=== PATIENT | female | born 1990 ===

== ENCOUNTER → 2021-03-27 | Day surgery (SDC) | payer OTHER ==
[~2021-03-27] MED LIST: KETO10TA2 PO
== END | disposition home or self-care (01) ==
LOC: ADM 03-26 11:30 → CIR.AMB 11:30
PROVIDERS: ATTEND Obstetrics & Gynecology
DX: N72 Inflammatory disease of cervix uteri (principal); Z20.822 Contact with and (suspected) exposure to COVID-19

== ENCOUNTER 2025-01-18 12:29 | Outpatient (CLI) | payer OTHER | END 2025-01-18 12:31 | disposition home or self-care (01) | LOC: PRENATAL 12:29 | PROVIDERS: ATTEND Obstetrics & Gynecology Maternal & Fetal Medicine | DX: O44.00 Complete placenta previa NOS or without hemorrhage, unspecified trimester (principal); O36.1999 Maternal care for other isoimmunization, unspecified trimester, other fetus; Z3A.24 24 weeks gestation of pregnancy ==

== ENCOUNTER 2025-03-22 09:10 | Outpatient (CLI) | payer OTHER | END 2025-03-22 09:11 | disposition home or self-care (01) | LOC: PRENATAL 09:10 | PROVIDERS: ATTEND Obstetrics & Gynecology Maternal & Fetal Medicine | DX: O26.849 Uterine size-date discrepancy, unspecified trimester (principal); O36.8199 Decreased fetal movements, unspecified trimester, other fetus; O36.1999 Maternal care for other isoimmunization, unspecified trimester, other fetus; Z3A.34 34 weeks gestation of pregnancy ==

== ENCOUNTER 2025-03-31 17:39 | Outpatient (CLI) | payer OTHER ==
[2025-03-31 16:37] VITALS: BP 109/77
[2025-03-31] MEDS ORDERED: FAMOTIDINE/PF 20 MG/2 ML VIAL IV PUSH SCH (17:45)
[2025-03-31] MEDS ORDERED: RINGERS SOLUTION,LACTATED 1,000 ML IV SCH (17:45)
[2025-03-31] MEDS ORDERED: ONDANSETRON HCL 2 MG/ML VIAL IV PRN (18:00)
[2025-03-31 18:12] LABS: PH,URINE 6.5 (5.0-8.0); URINE APPEARANCE Clear; URINE BILIRRUBIN Small (NEGATIVE); URINE BLOOD Negative; URINE COLOR Dark Yellow; URINE GLUCOSE Negative (NEGATIVE); URINE LEUKOCYTE Trace; URINE NITRATE Negative; URINE PROTEIN 30 (NEGATIVE)
[2025-03-31 18:13] LABS: HEMATOCRIT 31.3 % (36.0-45.00); HEMOGLOBIN 10.5 g/dL (12.0-15.00); MEAN CELL VOLUME 89.8 fL (80.00-100.00); MEAN CORPUSCULAR HGB CONC 33.4 g/dl (32.0-36.0); PLATELET COUNT 243 K/uL (150-450); RED BLOOD COUNT 3.49 M/uL (4.00-6.00); RED CELL DISTRIBUTION WIDTH 12.7 % (11.5-14.5)
[2025-03-31 18:15] LABS: URINE BACTERIA 152.9 uL (0.0-1933); URINE EPITHELIAL CELLS 43.2 uL (0.0-38.8); URINE RBC 4.7 uL (0.0-20.8); URINE WBC 21.3 uL (0.0-23.2)
[2025-03-31 18:47] LABS: ALBUMIN 2.3 gm/dL (3.4-5.0); BILIRUBIN TOTAL 0.53 mg/dL (0.3-1.2); CALCIUM 7.8 mg/dL (8.5-10.1); CREATININE SERUM 0.56 mg/dL (0.55-1.02); GFR 124.67; TOTAL PROTEIN 5.3 gm/dL (6.4-8.2)
[2025-03-31 19:10] LABS: URINE CAST 0.14 uL (0.0-1.40); URINE KETONE >=160 (NEGATIVE)
[2025-03-31 20:23] VITALS: BP 105/70
[2025-03-31 23:10] VITALS: BP 97/61
[2025-04-01 03:26] VITALS: BP 95/55
[2025-04-01 07:18] VITALS: BP 97/59
[2025-04-01 10:53] VITALS: BP 95/60
[2025-04-01 14:19] LABS: CALCIUM 7.9 mg/dL (8.5-10.1); CREATININE SERUM 0.53 mg/dL (0.55-1.02); GFR 132.85; POTASSIUM 3.14 mEq/L (3.5-5.1)
[2025-04-01 15:05] VITALS: BP 100/65
[2025-04-01 15:40] VITALS: BP 100/65
[2025-04-01 19:10] VITALS: BP 108/73
== END 2025-04-01 20:59 | disposition home or self-care (01) ==
LOC: OBS/DEL 17:39
PROVIDERS: ATTEND Obstetrics & Gynecology
DX: O36.8130 Decreased fetal movements, third trimester, not applicable or unspecified (principal); R11.10 Vomiting, unspecified; Z3A.33 33 weeks gestation of pregnancy

== ENCOUNTER 2025-05-07 21:12 | Inpatient (IN) | payer OTHER ==
[~2025-05-07] VITALS: Ht 157.5 cm; Wt 68.5 kg
[2025-05-07 21:28] VITALS: BP 114/65
[2025-05-07] MEDS ORDERED: PRENATABS RX T1 EACH PO (21:48)
[2025-05-07 22:00] LABS: BASO % 0.4 % (0.1-1.2); EOS # 0.08 (0.04-0.54); HEMATOCRIT 32.7 % (34.1-44.9); LYMPH # 2.08 (1.18-3.74); LYMPH % 24.8 % (19.3-53.1); MEAN CORPUSCULAR HEMOGLOBIN 28.4 pg (25.6-32.2); MONO # 0.41 (0.24-0.82); MONO % 4.9 % (4.7-12.5); NEUT # 5.73 (1.56-6.13); NEUT % 68.3 % (34.0-71.1); PLATELET COUNT 293 K/uL (163-369); RED BLOOD COUNT 3.88 M/uL (3.93-5.22); RED CELL DISTRIBUTION WIDTH 13.1 % (11.6-14.4); URINE APPEARANCE Clear; URINE BILIRRUBIN Negative (NEGATIVE); URINE BLOOD Negative; URINE COLOR Yellow; URINE GLUCOSE Negative (NEGATIVE); URINE KETONE Negative (NEGATIVE); URINE LEUKOCYTE Negative; URINE NITRATE Negative; URINE PROTEIN Trace (NEGATIVE)
[2025-05-07] MEDS ORDERED: RINGERS SOLUTION,LACTATED 1,000 ML IV SCH (22:00)
[2025-05-07 22:03] LABS: URINE BACTERIA 276.6 uL (0.0-1933); URINE EPITHELIAL CELLS 16.7 uL (0.0-38.8); URINE WBC 8.6 uL (0.0-23.2)
[2025-05-07 22:13] LABS: URINE CAST 0.14 uL (0.0-1.40); URINE RBC 1.3 uL (0.0-20.8)
[2025-05-07 22:23] LABS: INR < 0.93; PARTIAL THROMBOPLASTIN TIME 24.6 SECONDS (22.0-34.0); PROTHROMBIN TIME 9.7 SECONDS (9.0-11.5)
[2025-05-07 22:26] LABS: POTASSIUM 3.8 mEq/L (3.5-5.1)
[2025-05-07 22:29] LABS: ALBUMIN 2.6 gm/dL (3.4-5.0); CALCIUM 8.5 mg/dL (8.5-10.1)
[2025-05-07 22:34] LABS: BILIRUBIN TOTAL 0.31 mg/dL (0.3-1.2); CREATININE SERUM 0.82 mg/dL (0.55-1.02); GFR 80.28; GLOBULINA 3.6 G/DL (2.4-3.5); TOTAL PROTEIN 6.2 gm/dL (6.4-8.2)
[2025-05-07 23:40] VITALS: BP 129/78
[2025-05-08 04:08] VITALS: BP 117/73
[2025-05-08 06:36] VITALS: BP 116/76; O2SAT 97
[2025-05-08 12:02] VITALS: BP 115/74; O2SAT 98
[2025-05-08 15:22] VITALS: BP 129/72
[2025-05-08 16:19] VITALS: BP 135/65
[2025-05-08 22:31] LABS: URINE PROT QUANT 24HR 15.6 MG/DL
[2025-05-08 22:33] LABS: URINE PROT QUANT 24 HR 347.1 MG/24HR (42-225)
[2025-05-09] VITALS: BP 116/75
[2025-05-09 08:33] VITALS: BP 130/84
[2025-05-09 16:32] VITALS: BP 122/74
[2025-05-10] VITALS (12 sets, daily range): BP systolic 113–136; BP diastolic 61–91; O2SAT 100
[2025-05-10] MEDS ORDERED: OXYTOCIN 20 UNITS/500ML RL PIGGYBAG IV ONE (07:25)
[2025-05-10] MEDS ORDERED: OXYTOCIN 500 ML IV SCH (07:30)
[2025-05-10] MEDS ORDERED: CHLORHEXIDINE GLUCONATE 120 ML BOTTLE TOP ONE (15:07)
[2025-05-10] MEDS ORDERED: OXYTOCIN 20 UNITS/1000ML RL PIGGYBAG IV ONE (17:08)
[2025-05-10] MEDS ORDERED: ERYTHROMYCIN BASE OPHT 1GM EACH TUBE OP ONE ×2 (17:08→21:45)
[2025-05-10] MEDS ORDERED: LIDOCAINE HCL 1% 10ML VIAL ONE ×2 (17:08→20:30)
[2025-05-10] MEDS ORDERED: IBUprofen 400 MG TABLET PO PRN (21:15)
[2025-05-10] MEDS ORDERED: OXYTOCIN 1,000 ML IV SCH (21:15)
[2025-05-10] MEDS ORDERED: CHLORHEXIDINE GLUCONATE 120 ML BOTTLE TP SCH (21:15)
[2025-05-10] MEDS ORDERED: LIDOCAINE HCL 1% 10ML VIAL IJ ONE (21:45)
[2025-05-11 01:40] VITALS: BP 135/80
[2025-05-11 08:53] VITALS: BP 129/73
[2025-05-11] MEDS ORDERED: FF) RHO(D) IMMUNE GLOBULIN (POM) IM ONE (09:00)
[2025-05-11] MEDS ORDERED: NAPROXEN 500 MG TABLET PO PRN (09:00)
[2025-05-11] MEDS ORDERED: BENZOCAINE/MENTHOL 90 ML BOTTLE TOP SCH (10:00)
[2025-05-11 13:56] VITALS: BP 119/77
[2025-05-11 16:42] VITALS: BP 119/77; O2SAT 98
[2025-05-11] MEDS ORDERED: SENNA/DOCUSATE SODIUM 1 TAB TABLET PO SCH (21:00)
[2025-05-12 00:08] VITALS: BP 101/64
[2025-05-12 08:00] VITALS: BP 120/87
[2025-05-12] MEDS ORDERED: COLACE100 MG PO (09:30)
[2025-05-12] MEDS ORDERED: NAPROXEN500 MG PO (09:31)
[2025-05-12] MEDS ORDERED: FF) RHO(D) IMMUNE GLOBULIN (POM) IM ONE (09:45)
== END 2025-05-12 14:00 | disposition home or self-care (01) | DRG 807 ==
LOC: OB/GYN 21:12 → LDR 21:12 → OB/GYN 05-08 13:27 → O/R 05-09 13:16 → OB/GYN 05-09 13:17
PROVIDERS: ADMIT Obstetrics & Gynecology; ATTEND Obstetrics & Gynecology
PROC: 4A1HXCZ Monitoring of Products of Conception, Cardiac Rate, External Approach (ICD-10-PCS; 2025-05-07)
PROC: 10D07Z6 Extraction of Products of Conception, Vacuum, Via Natural or Artificial Opening (ICD-10-PCS; principal; 2025-05-10)
PROC: 0W8NXZZ Division of Female Perineum, External Approach (ICD-10-PCS; 2025-05-10)
DX: O66.5 Attempted application of vacuum extractor and forceps (principal); O14.94 Unspecified pre-eclampsia, complicating childbirth; Z37.0 Single live birth; Z3A.39 39 weeks gestation of pregnancy